=== PATIENT | female | born 1990 | race American Indian/Alaskan Native ===

== ENCOUNTER 2017-02-03 10:57 | Outpatient (CLI) | payer MEDICAID ==
[2017-02-03] MEDS ORDERED: LACTATED RINGERS 500 ML IV ONE (11:30)
[2017-02-03 11:43] VITALS: BP 105/56
== END 2017-02-03 12:49 | disposition home or self-care (01) ==
LOC: TRG 10:57
PROVIDERS: ATTEND Obstetrics & Gynecology
DX: O47.03 False labor before 37 completed weeks of gestation, third trimester (principal); Z3A.34 34 weeks gestation of pregnancy
CPT/HCPCS: 59025; J7120

== ENCOUNTER 2017-02-21 18:22 | Outpatient (CLI) | payer MEDICAID ==
[2017-02-21 18:43] VITALS: BP 112/65
[2017-02-21] MEDS ORDERED: LACTATED RINGERS 1,000 ML ONE (20:14)
[2017-02-21] MEDS ORDERED: LACTATED RINGERS 1,000 ML IV SCH (21:00)
--- NOTE | 2017-02-22 10:14 | Ultrasound Report ---
BIOPHYSICAL PROFILE: 2 - breathing movements 2 - movements 2 - posture and tone 2 - Qualitative amniotic fluid volume 8 - TOTAL SCORE OF POSSIBLE 8 Heart Rate (bpm) 166 Gestation: Single Position: Cephalic Amniotic Fluid: DOYLE = 10.6 cm Placenta: Fungal Placental Grade: 1 Heart Rate: 166 BPM No evidence of abruption.
== END 2017-02-21 22:25 | disposition home or self-care (01) ==
LOC: TRG 18:22 → LD 18:24 → TRG 22:25
PROVIDERS: ATTEND Obstetrics & Gynecology
DX: O47.1 False labor at or after 37 completed weeks of gestation (principal); Z3A.37 37 weeks gestation of pregnancy
CPT/HCPCS: 59025; 76815; 76819; J7120

== ENCOUNTER 2018-01-16 21:22 | Emergency (ER) | payer MEDICAID, OTHER ==
[2018-01-16 22:25] LABS: Basophils % (Auto) 0.3 % (0.0-1.8); Eosinophils # (Auto) 0.1 K/mm3 (0.0-0.4); Eosinophils % (Auto) 1.3 % (0.0-4.3); Hematocrit 33.4 % (30.3-42.9); Hemoglobin 11.5 gm/dl (10.1-14.3); Lymphocytes # (Auto) 2.1 K/mm3 (1.2-5.4); Lymphocytes % (Auto) 32.8 % (13.4-35.0); Mean Corpuscular HGB Conc 35 % (30-34); Mean Corpuscular Hemoglobin 31 pg (28-32); Mean Corpuscular Volume 89 fl (79-97); Monocytes # (Auto) 0.5 K/mm3 (0.0-0.8); Monocytes % (Auto) 7.9 % (0.0-7.3); Platelet Count 230 K/mm3 (140-440); Red Blood Count 3.74 M/mm3 (3.65-5.03); Red Cell Distribution Width 13.5 % (13.2-15.2)
[2018-01-16 22:46] LABS: Alanine Aminotransferase 6 units/L (7-56); Albumin 3.6 g/dL (3.9-5); BUN/Creatinine Ratio 16; Blood Urea Nitrogen 8 mg/dL (7-17); Hemolysis Index 1
[2018-01-16 22:56] LABS: Bilirubin,Urine NEG (Negative); Blood,Urine SM (Negative); Color,Urine Yellow (Yellow); Mucus,Urine FEW /HPF; Protein,Urine <15 mg/dL mg/dL (Negative)
--- NOTE | 2018-01-16 23:20 | Ultrasound Report ---
FINAL REPORT PROCEDURE: US OB > = 14 WEEKS FETUS TECHNIQUE: Real-time transabdominal sonography of the uterus, placenta, amniotic fluid, adnexa, and fetus was performed with image documentation. Measurements were obtained to determine age/size. M-mode Doppler was used to document heartbeat. CPT 80843 HISTORY: 17 weeks vag bleeding COMPARISON: No prior studies are available for comparison. FINDINGS: ADDITIONAL GESTATION: None. GENERAL: IUP: Single living intrauterine . Position: Vertex Placental position: Posterior, without previa. Amniotic fluid volume: Normal. MATERNAL: Uterus: Within normal limits. Cervical length: 3.2 cm. Internal Os: Closed. FETUS: Heart rate and rhythm: 160 beats per minute anatomic survey: Not performed on this study MEASUREMENTS: BPD: 3.9 centimeter HC: 14.5 centimeter AC: 11.1 centimeter FL: 2.4 centimeter Mean Gestational Age (composite criteria): 17 weeks 3 days Ratio biometry: Normal. Estimated Weight: 185 grams. Interval growth: No prior studies Estimated Due Date (earliest scan): 06/23/2018 IMPRESSION: Single intrauterine gestation at 17 weeks 3 days. Estimated due date: 06/23/2018. Normal survey.
--- NOTE | 2018-01-17 07:20 | Emergency Department Report ---
ED Abdominal Pain HPI - General Chief Complaint: Abdominal Pain Stated Complaint: 17 WEEKS , BAD CRAMPS, BLEEDING Time Seen by Provider: 01/17/18 06:12 Source: patient Mode of arrival: Ambulatory Limitations: No Limitations - History of Present Illness Initial Comments: pt. is approx. 17 weeks and yesterday she was having vaginal bleeding and abdominal cramping . she just found out she is preg. and as been drinking in this .she is RH negative. This is not are first and she as previously had rhogam. last time she wipped about 8hrs ago she had blood but none since then. MD Complaint: abdominal pain Onset/Timin (DAY) -: Gradual Location: LLQ, RLQ, suprapubic Radiation: none Migration to: no migration Severity: moderate Quality: aching Consistency: intermittent Improves With: nothing Worsens With: nothing Associated Symptoms: nausea - Related Data Home Medications Medication Instructions Recorded Confirmed Last Taken ALBUTEROL Inhaler [ProAir HFA 2 puff IH QID PRN 02/15/16 03/18/17 2 Weeks Ago Inhaler] ~02/02/16 Previous Rx's Medication Instructions Recorded Last Taken Type Ferrous Sulfate [Feosol 325 MG tab] 325 mg PO BID #30 tablet 03/19/17 Unknown Rx oxyCODONE /ACETAMINOPHEN [Percocet 1 tab PO Q6HR PRN #30 tablet 03/19/17 Unknown Rx 5/325] Nitrofurantoin Monohyd/M-Cryst 100 mg PO BID 7 Days #14 capsule 01/17/18 Unknown Rx [Macrobid 100 mg Capsule] Allergies Allergy/AdvReac Type Severity Reaction Status Date / Time latex Allergy Severe Itching Verified 02/03/17 11:07 ED Review of Systems ROS: Stated complaint: 17 WEEKS , BAD CRAMPS, BLEEDING Other details as noted in HPI Comment: All other systems reviewed and negative ED Past Medical Hx - Past Medical History Previous Medical History?: Yes Hx Hypertension: No Hx Congestive Heart Failure: No Hx Diabetes: No Hx Deep Vein Thrombosis: No Hx Renal Disease: No Hx Sickle Cell Disease: No Hx Seizures: No Hx Asthma: Yes (uses inhaler few times/week) Hx COPD: No Hx HIV: No - Surgical History Past Surgical History?: Yes Additional Surgical History: LEAP, D&C - Social History Smoking Status: Former Smoker Substance Use Type: Alcohol - Medications Home Medications: Home Medications Medication Instructions Recorded Confirmed Last Taken Type ALBUTEROL Inhaler [ProAir HFA 2 puff IH QID PRN 02/15/16 03/18/17 2 Weeks Ago History Inhaler] ~02/02/16 Ferrous Sulfate [Feosol 325 MG tab] 325 mg PO BID #30 tablet 03/19/17 Unknown Rx oxyCODONE /ACETAMINOPHEN [Percocet 1 tab PO Q6HR PRN #30 tablet 03/19/17 Unknown Rx 5/325] Nitrofurantoin Monohyd/M-Cryst 100 mg PO BID 7 Days #14 capsule 01/17/18 Unknown Rx [Macrobid 100 mg Capsule] ED Physical Exam - General Limitations: No Limitations General appearance: alert, in no apparent distress - Head Head exam: Present: atraumatic, normocephalic - Eye Eye exam: Present: normal appearance - ENT ENT exam: Present: mucous membranes moist - Neck Neck exam: Present: normal inspection - Respiratory Respiratory exam: Present: normal lung sounds bilaterally. Absent: respiratory distress - Cardiovascular Cardiovascular Exam: Present: regular rate, normal rhythm. Absent: systolic murmur, diastolic murmur, rubs, gallop - GI/Abdominal GI/Abdominal exam: Present: soft, normal bowel sounds. Absent: tenderness - Rectal Rectal exam: Present: deferred - Extremities Exam Extremities exam: Present: normal inspection - Back Exam Back exam: Present: normal inspection - Neurological Exam Neurological exam: Present: alert, oriented X3 - Psychiatric Psychiatric exam: Present: normal affect, normal mood - Skin Skin exam: Present: warm, dry, intact, normal color. Absent: rash ED Course Vital Signs 01/16/18 01/17/18 01/17/18 21:57 01:01 01:07 Temperature 98.4 F 98.9 F Respiratory 18 Rate Blood Pressure 105/54 96/56 O2 Sat by Pulse 100 Oximetry 01/17/18 01/17/18 01/17/18 01:16 01:30 01:46 Temperature Respiratory Rate Blood Pressure 96/56 96/56 96/56 O2 Sat by Pulse 100 100 100 Oximetry 01/17/18 01/17/18 01/17/18 02:00 02:16 02:30 Temperature Respiratory Rate Blood Pressure 96/56 94/63 94/63 O2 Sat by Pulse 100 100 100 Oximetry 01/17/18 01/17/18 01/17/18 02:46 03:00 03:16 Temperature Respiratory Rate Blood Pressure 94/63 94/63 92/53 O2 Sat by Pulse 98 100 100 Oximetry 01/17/18 01/17/18 01/17/18 03:30 03:46 04:00 Temperature Respiratory Rate Blood Pressure 92/53 92/53 96/63 O2 Sat by Pulse 99 100 99 Oximetry 01/17/18 04:16 Temperature Respiratory Rate Blood Pressure 96/63 O2 Sat by Pulse 99 Oximetry ED Medical Decision Making - Lab Data Result diagrams: 01/16/18 22:07 01/16/18 22:07 - Medical Decision Making PT. GIVEN RHOGAM PRIOR TO LEAVING Critical care attestation.: If time is entered above; I have spent that time in minutes in the direct care of this critically ill patient, excluding procedure time. ED Disposition Clinical Impression: Threatened , UTI (urinary tract infection) Disposition: - TO HOME OR SELFCARE Is pt being admited?: No Does the pt Need Aspirin: No Condition: Stable Instructions: Abdominal Pain (ED) Additional Instructions: TAKE YOUR VITAMINS AND STOP ALCOHOL. INCREASE WATER INTAKE Prescriptions: Nitrofurantoin Monohyd/M-Cryst [Macrobid 100 mg Capsule] 100 mg PO BID 7 Days # 14 capsule Referrals: MONA DONIS MD [Primary Care Provider] - 3-5 Days MARLEEN GUZMAN MD [Staff Physician] - 2-3 Days ( care . pt. is 17 weeks and 3 days by USS DONE 01/16/18) Time of Disposition: 07:26 Print Language: NAMIBIAN
[2018-01-17] MEDS ORDERED: MACROBID PO ONE (07:42)
[2018-01-17 07:46] VITALS: BP 97/41
== END 2018-01-17 08:36 | disposition home or self-care (01) ==
LOC: ED 21:22
DX: O20.0 Threatened abortion (principal); O23.41 Unspecified infection of urinary tract in pregnancy, first trimester; O99.331 Smoking (tobacco) complicating pregnancy, first trimester; J45.909 Unspecified asthma, uncomplicated; Z91.040 Latex allergy status; Z3A.17 17 weeks gestation of pregnancy
CPT/HCPCS: 36415; 76805; 80053; 81001; 84702; 85025; 86900; 86901; 99284; J2790